=== PATIENT | male | born 1985 | race Caucasian/White ===

== ENCOUNTER 2019-05-28 12:48 | Outpatient (CLI) | payer OTHER ==
--- NOTE | 2019-05-28 14:45 | RAD ---
DIAZ VIEW OF THE SINUSES: HISTORY: MRI clearance. FINDINGS: The frontal, sphenoid, ethmoid, and maxillary sinuses are clear. No radiopaque foreign bodies. IMPRESSION: No evidence of metallic foreign body. POS: OFF
--- NOTE | 2019-05-28 15:01 | MRI ---
EXAM: MRI Lumbar Spine WO Con PROVIDED CLINICAL HISTORY: Lumbar radiculopathy COMPARISON: None FINDINGS: 5 lumbar vertebral bodies are assumed. Lumbar alignment appears normal. Vertebral body heights are pr eserved. Intervertebral disc space heights are preserved. Mild disc desiccation at L4-5 and L5-S1. No focal concerning regional marrow signal abnormality apparent. The conus medullaris is normal in si gnal and terminates at an appropriate level. At L1-2, there is no significant central canal or foraminal narrowing apparent. At L2-3, there is no significant central canal or foraminal narrowing apparent. At L3-4, there is no significant central canal or foraminal narrowing apparent. At L4-5, there is a minimal broad-based disc bulge and mild bilateral facet arthritis without signifi cant central canal or foraminal narrowing apparent. At L5-S1, there is a broad-based disc bulge and bilateral facet arthritis. There is no significant ce ntral canal or foraminal narrowing apparent. IMPRESSION: Lower lumbar spine degenerative change without evidence for significant central canal or foraminal na rrowing.
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
== END 2019-05-28 12:49 | disposition home or self-care (01) ==
LOC: BICMRI 12:48
PROVIDERS: ATTEND Chiropractor
DX: S33.5XXA Sprain of ligaments of lumbar spine, initial encounter (principal); S13.4XXD Sprain of ligaments of cervical spine, subsequent encounter; M99.03 Segmental and somatic dysfunction of lumbar region; M54.16 Radiculopathy, lumbar region; M99.01 Segmental and somatic dysfunction of cervical region; M47.816 Spondylosis without myelopathy or radiculopathy, lumbar region
CPT/HCPCS: 70210; 72141; 72148